=== PATIENT | female | born 1995 | race African-American/Black ===

== ENCOUNTER 2018-03-30 21:15 | Emergency (ER) | payer OTHER ==
[~2018-03-30] VITALS: Ht 154.9 cm; Wt 108.9 kg
[~2018-03-30 21:15] MED LIST: IBUPROFEN600 MG ORAL
[2018-03-30 21:20] VITALS: BP 104/71
[2018-03-30] MEDS ORDERED: Phenazopyridine 200mg tab ORAL ONE (21:45)
[2018-03-30] MEDS ORDERED: Cephalexin 500mg cap ORAL ONE (21:45)
--- NOTE | 2018-03-30 21:48 | Emergency Room Report ---
History of Present Illness General Chief Complaint: Female Urogenital Problems Source: Patient Present Illness HPI Is a 22-year-old female with a history of UTIs. She said he usually occur during her menstrual flow. She presents with chief complaint of dysuria, frequency and urgency for the last 6 hours. No back pain or vomiting. Pain is 8 out of 10. Worse with urination. Has not take anything for this. Denies any trauma. Allergies: Coded Allergies: No Known Allergies (Unverified , 06/11/16) Patient History Past Medical History: see triage record, old chart reviewed Past Surgical History: none Pertinent Family History: none Social History: Denies: smoking Last Menstrual Period: 02/10/2018 Now: No : 3 Para: 2 Immunizations: other Reviewed Nursing Documentation: PMH: Agreed; PSxH: Agreed Nursing Documentation-PMH Past Medical History: No History, Except For Hx Hypertension: No Hx Asthma: Yes Review of Systems Eye: Denies: eye pain, blurred vision ENT: Denies: ear pain, nose congestion, throat swelling Respiratory: Denies: cough, shortness of breath Cardiovascular: Denies: chest pain, palpitations Gastrointestinal: Denies: abdominal pain, diarrhea, nausea, vomiting Genitourinary: Reports: dysuria, frequency, urgency Musculoskeletal: Denies: back pain, joint pain Skin: Denies: rash Neurological: Denies: headache, numbness Endocrine: Denies: increased thirst, increased urine Hematologic/Lymphatic: Denies: easy bruising All Other Systems: negative except mentioned in HPI Physical Exam Vital Signs Date Time Temp Pulse Resp B/P (MAP) Pulse Ox O2 Delivery O2 Flow Rate FiO2 03/30/18 21:18 98.0 100 16 104/71 98 Room Air 98.1 vitals normal Sp02 EP Interpretation: reviewed, normal General Appearance: well appearing, no apparent distress, alert Head: normocephalic, atraumatic Eyes: bilateral eye PERRL, bilateral eye EOMI ENT: hearing grossly normal, normal pharynx Neck: full range of motion, supple, no meningismus Respiratory: chest non-tender, lungs clear, normal breath sounds Cardiovascular #1: regular rate, rhythm, no murmur Gastrointestinal: normal bowel sounds, non tender, no mass, no organomegaly, no bruit, non-distended Musculoskeletal: back normal, gait/station normal, normal range of motion Psychiatric: mood/affect normal Skin: warm/dry Medical Decision Making Diagnostic Impression: Primary Impression: UTI (urinary tract infection) Qualified Codes: N30.00 - Acute cystitis without hematuria ER Course Patient with symptoms consistent with a simple UTI. No pyelonephritis. No sepsis or toxicity. We'll discharge home. Dose of antibiotics and Pyridium given here. Urine culture sent. Last Vital Signs Date Time Temp Pulse Resp B/P (MAP) Pulse Ox O2 Delivery O2 Flow Rate FiO2 03/30/18 21:20 98.1 100 16 104/71 98 Room Air 98.1 Status: improved Disposition: HOME, SELF-CARE Condition: Stable Scripts Phenazopyridine Hcl* (PYRIDIUM*) 200 Mg Tablet 200 MG ORAL THREE TIMES A DAY, #6 TAB 0 Refills Prov: NADIA HOLLIS M.D. 03/30/18 Cephalexin* (KEFLEX*) 500 Mg Capsule 500 MG ORAL TID, #21 CAP Prov: NADIA HOLLIS M.D. 03/30/18 Patient Instructions: Urinary Tract Infection Additional Instructions: Follow-up with your doctor in 7 days. Return if symptom worsen. NADIA HOLLIS M.D. March 30, 2018 21:48
[2018-03-30] MEDS ORDERED: PHENAZOPYRIDIN200 MG ORAL (21:51)
[2018-03-30] MEDS ORDERED: CEPHALEXIN500 MG ORAL (21:51)
[2018-03-30 22:03] VITALS: BP 104/71
== END 2018-03-30 22:05 | disposition home or self-care (01) ==
LOC: EMR 22:04
DX: N39.0 Urinary tract infection, site not specified (principal); J45.909 Unspecified asthma, uncomplicated
CPT/HCPCS: 87086; 87181; 99284

== ENCOUNTER 2018-07-14 21:15 | Emergency (ER) | payer OTHER ==
[~2018-07-14] VITALS: Ht 154.9 cm; Wt 108.9 kg
[~2018-07-14 21:15] MED LIST changes: +CEPHALEXIN500 MG ORAL; +PHENAZOPYRIDIN200 MG ORAL
--- NOTE | 2018-07-14 21:46 | Emergency Room Report ---
History of Present Illness General Chief Complaint: Foot pain Source: Patient Present Illness HPI Patient is a 22-year-old female presented after increased right ankle pain. Patient had I reportedly injured her ankle after falling off a [employer] truck approximately 3 feet. As she reported having inverted her ankle and subsequently began having ankle and foot pain. She denies other locations of pain. She reports having prior history of asthma. She denies taking any medications currently. She denies medication allergies. She denies recent tetanus vaccine. Allergies: Coded Allergies: No Known Allergies (Unverified , 06/11/16) Patient History Past Medical History: see triage record Reviewed Nursing Documentation: PMH: Agreed; PSxH: Agreed Nursing Documentation-PMH Hx Hypertension: No Hx Asthma: Yes Review of Systems All Other Systems: negative except mentioned in HPI Physical Exam General Appearance: well appearing, no apparent distress, obese Head: normocephalic, atraumatic ENT: hearing grossly normal, normal voice Neck: full range of motion, supple Respiratory: no respiratory distress, speaking full sentences Cardiovascular #1: normal inspection, regular rate, rhythm Musculoskeletal: normal inspection, digits/nails normal, no calf tenderness Neurologic: normal inspection, alert, oriented x3, responsive, patent legal assistant III-XII nml as tested, normal gait Psychiatric: mood/affect normal Skin: other - right lateral foot abrasion Medical Decision Making Diagnostic Impression: Primary Impression: Skin abrasion Additional Impression: Ankle sprain ER Course Patient presented for foot and ankle pain. Differential diagnosis included was not limited to fracture, dislocation, sprain, among others. X-ray imaging of the ankle was ordered. Patient appears to have some tenderness to the lateral ankle consistent with a sprain. X-ray of the right ankle 3 views interpreted by me showed normal bony line without evident fracture or dislocation.The x-ray imaging right foot 3 views interpreted by me showed normal bony line without evident fracture. The patient was given Monster wrap and crutches. She is advised to keep her leg elevated and iced treatments intermittently. The patient is advised to follow up with primary care doctor in 2-3 days. Patient is advised to return if any worsening condition or if any changes in status that are concerning. This report is dictated with [employer] stock preparer software which may occasionally lead to discrepancies related to use of this software. Status: improved Disposition: HOME, SELF-CARE Condition: Stable Scripts Bacitracin Zinc* (BACITRACIN ZINC*) 1 Each Packet 1 APPLIC TOPIC THREE TIMES A DAY, #10 PACKET Prov: Michel Elena MD 07/14/18 Ibuprofen* (MOTRIN*) 600 Mg Tablet 600 MG ORAL Q8H PRN for For Pain, #30 TAB 0 Refills Prov: Michel Elena MD 07/14/18 Michel Elena MD Jul 14, 2018 21:46
[2018-07-14] MEDS ORDERED: BACITRACIN ZIN1 EACH TOPIC (21:48)
[2018-07-14] MEDS ORDERED: IBUPROFEN600 MG ORAL (21:48)
[2018-07-14] MEDS ORDERED: Tetanus/Diptheria/Pertussis Vaccine 0.5ml Syr IM ONE (22:00)
[2018-07-14 22:45] VITALS: BP 118/83
== END 2018-07-14 23:00 | disposition home or self-care (01) ==
LOC: EMR 22:56
DX: S93.401A Sprain of unspecified ligament of right ankle, initial encounter (principal); V89.9XXA Person injured in unspecified vehicle accident, initial encounter; Y93.89 Activity, other specified; Y92.9 Unspecified place or not applicable; S90.511A Abrasion, right ankle, initial encounter; J45.909 Unspecified asthma, uncomplicated; Z23 Encounter for immunization
CPT/HCPCS: 90471; 90715; 99283

== ENCOUNTER 2019-01-27 02:28 | Emergency (ER) | payer OTHER ==
[~2019-01-27] VITALS: Ht 154.9 cm; Wt 99.8 kg
[~2019-01-27 02:28] MED LIST changes: +BACITRACIN ZIN1 EACH TOPIC
--- NOTE | 2019-01-27 02:42 | NUR ---
ED Nurse Note: Patient walked into ED c/o rash on her left inner arm, patient states that this has been an ongoing issue for about a month now. Pt is AO x 4times, VSS, on room air no distress. FANI seen Pt at bedside.
[2019-01-27 02:50] VITALS: BP 145/84
[2019-01-27] MEDS ORDERED: CLOTRIMAZOLE-BE15 GM TP (02:53)
[2019-01-27] MEDS ORDERED: BACTRIM DS TAB1 EAC1 ORAL (02:53)
[2019-01-27] MEDS ORDERED: FLUCONAZOLE100 MG ORAL (02:53)
--- NOTE | 2019-01-27 02:54 | Emergency Room Report ---
History of Present Illness General Chief Complaint: Skin Rash/Abscess Source: Patient Present Illness HPI Is a 23-year-old female with history of asthma. She has no diabetes. She presents with a rash to her left axilla area. Initially it was small and scaly. it is very itching. She try [id number] medication without any relief. In the last week his been very itchy and red. Spreading. Now is to her upper arm and torso area. Worse with itching. Worse with scratching. Denies any other complaint. No trauma. No drainage. Allergies: Coded Allergies: No Known Allergies (Unverified , 06/11/16) Patient History Past Medical History: see triage record, old chart reviewed, asthma Past Surgical History: none Pertinent Family History: none Social History: Denies: smoking Last Menstrual Period: 01/23/19 Now: No : 2 Para: 2 Immunizations: other Reviewed Nursing Documentation: PMH: Agreed; PSxH: Agreed Nursing Documentation-PMH Past Medical History: No History, Except For Hx Hypertension: No Hx Asthma: Yes Review of Systems Eye: Denies: eye pain, blurred vision ENT: Denies: ear pain, nose congestion, throat swelling Respiratory: Denies: cough, shortness of breath Cardiovascular: Denies: chest pain, palpitations Gastrointestinal: Denies: abdominal pain, diarrhea, nausea, vomiting Musculoskeletal: Denies: back pain, joint pain Skin: Reports: rash Neurological: Denies: headache, numbness Endocrine: Denies: increased thirst, increased urine Hematologic/Lymphatic: Denies: easy bruising All Other Systems: negative except mentioned in HPI Physical Exam Vital Signs Date Time Temp Pulse Resp B/P (MAP) Pulse Ox O2 Delivery O2 Flow Rate FiO2 01/27/19 02:35 98.2 90 18 99 Room Air vitals normal Sp02 EP Interpretation: reviewed, normal General Appearance: well appearing, no apparent distress, alert, obese Head: normocephalic, atraumatic Eyes: bilateral eye PERRL, bilateral eye EOMI ENT: hearing grossly normal, normal pharynx Neck: full range of motion, supple, no meningismus Respiratory: chest non-tender, lungs clear, normal breath sounds Cardiovascular #1: regular rate, rhythm, no murmur Gastrointestinal: normal bowel sounds, non tender, no mass, no organomegaly, no bruit, non-distended Musculoskeletal: back normal, gait/station normal, normal range of motion Neurologic: alert, oriented x3 Psychiatric: mood/affect normal Skin: warm/dry, other - Left axilla: There is a erythematous area that is coming the axilla extending to the distal upper arm torso and chest area. Martín area with erythema and excoriation Medical Decision Making Diagnostic Impression: Primary Impression: Cellulitis Qualified Codes: L03.112 - Cellulitis of left axilla Additional Impression: Intertriginous candidiasis ER Course Patient presents with intertrigo with secondary cellulitis. I suspect this may be MRSA. Dose of antibiotics given here. No evidence of necrotizing fasciitis , sepsis, abscess or deep infection. We'll discharge home. Last Vital Signs Date Time Temp Pulse Resp B/P (MAP) Pulse Ox O2 Delivery O2 Flow Rate FiO2 01/27/19 02:35 98.2 90 18 99 Room Air Status: unchanged Disposition: HOME, SELF-CARE Condition: Stable Scripts Trimethoprim/Sulfamethoxazole 160/800* (BACTRIM DS TABLET*) 1 Each Tablet 1 TAB ORAL Q12H, #14 TAB 0 Refills Prov: Waqas Barron MD 01/27/19 Fluconazole (FLUCONAZOLE) 100 Mg Tablet 100 MG ORAL DAILY, #7 TAB 0 Refills Prov: Waqas Barron MD 01/27/19 Clotrimazole/Betamethasone Dip (CLOTRIMAZOLE-BETAMETHASONE CRM) 15 Gm Cream..g. 1 ML TP TID, #60 GM Prov: Waqas Barron MD 01/27/19 Additional Instructions: Keep wound clean. Follow up with your doctor in 7 days. You may need a referral to see a supervisor winter. Return if worse. Waqas Barron MD Jan 27, 2019 02:54
[2019-01-27] MEDS ORDERED: Bactrim-DS 1 tab ORAL ONE (03:00)
--- NOTE | 2019-01-27 03:05 | NUR ---
ER DISCHARGE NOTE: Patient is cleared to be discharged per ERMD, pt is aox4, on room air, with stable vital signs. pt was given dc and prescription instructions, pt was able to verbalize understanding, pt id band removed without complications. pt is able to ambulate with steady gait with . pt took all belongings.
[2019-01-27 03:09] VITALS: BP 145/84
== END 2019-01-27 03:10 | disposition home or self-care (01) ==
LOC: EMR 03:03
DX: L03.112 Cellulitis of left axilla (principal); B37.2 Candidiasis of skin and nail; J45.909 Unspecified asthma, uncomplicated; I10 Essential (primary) hypertension
CPT/HCPCS: 99282